=== PATIENT | female | born 1995 | race African-American/Black ===

== ENCOUNTER 2022-08-30 19:31 | Emergency (ER) | payer OTHER ==
[~2022-08-30] VITALS: Ht 162.6 cm; Wt 76.2 kg
[2022-08-30 20:27] LABS: PLATELET COUNT 217 K/uL (152-353)
[2022-08-30 23:59] VITALS: BP 98/57; TEMP 97.3
== END 2022-08-30 23:59 | disposition home or self-care (01) ==
LOC: ED 19:31
PROVIDERS: Emergency Medicine
DX: N39.0 Urinary tract infection, site not specified (principal); N61.0 Mastitis without abscess; Z20.822 Contact with and (suspected) exposure to COVID-19
CPT/HCPCS: 36415; 80053; 81000; 81025; 85027; 87040; 87086; 87088; 87502; 87635; 87651; 99283; U0003

== ENCOUNTER 2022-10-07 15:39 | Outpatient (CLI) | payer OTHER | END 2022-10-07 19:02 | disposition home or self-care (01) | LOC: RAD 15:39 | PROVIDERS: ATTEND Family Medicine | DX: M54.50 Low back pain, unspecified (principal); R20.0 Anesthesia of skin ==

== ENCOUNTER 2023-03-18 10:27 | Outpatient (CLI) | payer OTHER ==
[2023-03-18 11:10] LABS: PLATELET COUNT 226 K/uL (152-353)
== END 2023-03-18 20:24 | disposition home or self-care (01) ==
LOC: RAD 10:27
PROVIDERS: ATTEND Family Medicine
DX: M54.2 Cervicalgia (principal); M54.10 Radiculopathy, site unspecified
CPT/HCPCS: 36415; 85027